=== PATIENT | male | born 1985 | race Caucasian/White ===

== ENCOUNTER 2019-10-03 15:08 | Outpatient (CLI) | payer OTHER ==
[2019-10-03 17:57] VITALS: BP 145/86
--- NOTE | 2019-10-03 17:57 | SLEEP CARE CONSULTATION ---
Information from patient questionnaire entered by Tg Hoang. I have reviewed and concur with the information entered by Tg Hoang. This document represents the service I personally performed and the decisions made by me, Shreya Bowens MD, [facility]. History of Present Illness Reason for Visit: New patient Chief Complaint: reports: Unrefreshed sleep, Snoring, Excessive daytime sleepiness, Observed pauses in breathing, Fatigue, Frequent awakenings at night Usual bedtime: 0900 Time it takes to fall asleep: 20-30 MINUTES Snores at night: Yes Observed to quit breathing while asleep: Yes Sleeps alone due to snoring: No Number of times waking at night: 3-4 Toss, Turn, or Twitch while sleeping: Yes Recalls having dreams: No Usually gets out of bed at: 1700 Feels refreshed in the morning: No Morning headache: Yes Sleepy or fatigued during the day: Yes Ever fallen asleep while driving: Yes Takes day naps: No Dreams during day naps: No Prior sleep studies: No Additional HPI information: I had the pleasure of seeing Mr. Peterson today regarding the possibility of him having a sleep disorder. As you know, he is a 34-year-old gentleman who complains of loud snore, observed apneas, frequent awakenings, unrefreshed sleep, persistent fatigue, and excessive daytime sleepiness for the past several years. The patient tells me that he normally goes to bed around 9 am, and it takes him approximately 20 - 30 minutes to fall asleep. He has been told that he snores loudly and irregularly at night. He has also been observed to stop breathing in his sleep. His can still sleep in the same bed. He can recall waking up on the average of 3 - 4 times during the night. Most of the time he wakes up because of no apparent reason. He has awakened occasionally because of his own snoring, but not choking, or having to gasp for air. There is a lot of tossing and turning in his sleep. He has somniloquy (sleep talking) but not somnambulism (sleep walking). Generally, there is no recollection of dreams. In the morning he usually gets up out of the bed around 5 pm not feeling refreshed nor rested. He occasionally has a morning headache that goes away within an hour. During the day he complains of feeling sleepy and fatigued. His score on [place] Sleepiness Scale is 15 out of 24. He has fallen asleep while driving and has gone out of the augustus. He usually does not take naps during the day. Upon falling asleep during the day he denies having vivid dreams. He has never had sleep paralysis, experienced cataplexy or symptoms of restless leg syndrome. He reports having impaired concentration during the day. Subjective Initial [place] Sleepiness Scale score: 15 Social History The patient's occupation is active . Patient is and lives in [place]. Have you smoked in the past 12 months: Yes Cigarettes per day (20/pack): 2 (1-2 every other week) Years of smokin Smoking Pack Years: 1.4 Alcohol use: Yes Alcohol amount and frequency: 1/month Caffeine use: Yes Caffeine amount and frequency: 1 cup/day Family History Family history of sleep disordered breathing: Yes Family Hx Sleep Apnea: Mother: Snoring, Father: Snoring Allergies and Home Medications Drug allergies reviewed: Yes (NKDA) Home medication list reviewed: Yes (Claritin) Review of Systems Weight gain over past 5 years: 40 Weight loss over past 5 years: 10 Cardiovascular: denies: high blood pressure, palpitations, chest pain, irregular heart rate or pulse, leg or foot swelling, have to sleep sitting up, other Neurological: reports: headaches Psychiatric: denies: Attention Deficit Hyperactivity, anxiety, depression, mood disorder, claustrophobia, other Ear/Nose/Throat: reports: dry mouth/throat, wisdom teeth removed Endocrine: reports: sluggishness Musculoskeletal: reports: neck pain, back pain Immunologic: denies: sneezing, rash, itching, allergies to food or environment, other Physical Exam Vital signs obtained and entered by: Dr. Bowens Blood Pressure: 145/86 Cuff size: regular Heart Rate: 82 O2 Saturation: 98 Height: 5 ft 10 in Weight: 278 lb Body Mass Index: 39.9 BMI Classification: Obese Neck circumference: 20 Mood/affect: normal HEENT: No craniofacial malformation Nostrils: patent to airflow Turbinates: normal Septum: midline Mouth and throat: narrow oropharynx Soft palate: long Hard palate: normal Uvula: normal Uvula visualization: 50% Mallampati Class II Tongue: normal in size Tonsils: small Chin and jaw: normal size and position Neck: normal w/o lymphadenopathy or thyromegaly Heart: regular rate and rhythm Lungs: clear bilaterally Abdomen: soft, non-tender Extremities: 1+ edema Neurologic: intact, no focal deficits Impression and Plan IMPRESSION: 1. Obstructive Sleep Apnea-Hypopnea Syndrome, as suggested by history of loud and irregular snoring, observed cessation of breath while asleep, frequent awakenings during the night, unrefreshed sleep, morning headache, cognitive impairment, and daytime hypersomnolence. Narrow oropharynx and obesity are common predisposing factors for obstructive sleep apnea-hypopnea syndrome. Pathophysiology of sleep-disordered breathing was discussed. I recommend proceeding to polysomnography to confirm the diagnosis and to assess severity. If he has significant sleep disordered breathing, a manual CPAP titration study will also be performed to find the optimal treatment pressure. I informed the patient of what the sleep studies involve and after some discussion, he agreed to proceed. Plan: 1. Schedule an in-laboratory polysomnography + manual CPAP titration study 2. Avoid long distance driving or when feeling sleepy. 3. Avoid alcohol, sedative and muscle relaxant around bedtime. 4. Attempt to lose weight. 5. Return in 1 to 2 weeks after the study to discuss results and initiate therapy. I spent 100% of this visit face to face with the patient with greater than 50% of this was spent time counseling the patient and coordination of care.
== END 2019-10-03 15:09 | disposition home or self-care (01) ==
LOC: SC 15:08
PROVIDERS: ATTEND Internal Medicine Pulmonary Disease
DX: R06.83 Snoring (principal); R06.81 Apnea, not elsewhere classified; G47.8 Other sleep disorders; R51 Headache; R41.89 Other symptoms and signs involving cognitive functions and awareness; G47.10 Hypersomnia, unspecified; E66.9 Obesity, unspecified; Z68.39 Body mass index [BMI] 39.0-39.9, adult
CPT/HCPCS: 99203; 99212

== ENCOUNTER 2019-10-28 19:39 | Outpatient (CLI) | payer OTHER | END 2019-10-28 19:40 | disposition home or self-care (01) | LOC: SC 19:39 | PROVIDERS: ATTEND Internal Medicine Pulmonary Disease | DX: G47.33 Obstructive sleep apnea (adult) (pediatric) (principal); E66.9 Obesity, unspecified; Z68.39 Body mass index [BMI] 39.0-39.9, adult | CPT/HCPCS: 95810 ==

== ENCOUNTER 2019-11-23 17:01 | Outpatient (CLI) | payer OTHER ==
--- NOTE | 2019-11-23 16:30 | SLEEP CARE CONSULTATION ---
Information from patient questionnaire entered by Tg Hoang. I have reviewed and concur with the information entered by Tg Hoang. This document represents the service I personally performed and the decisions made by me, Ashley Smalls, RN, MSN, [employer]. History of Present Illness Service Date and Time: 11/23/2019 1600 Initial [place] Sleepiness Scale score: 15 Current [place] Sleepiness Scale score: 12 Additional HPI information: REAL KHAN returns for televideo follow up to discuss results of the recently performed polysomnography. I explained the pathophysiology behind obstructive sleep apnea. We then spent quite a bit of time discussing different treatment options. For mild obstructive sleep apnea, surgery and oral appliance are alternatives to nasal CPAP therapy but in moderate or severe cases, nasal CPAP is the most effective and reliable treatment. I reviewed the impact of weight changes on sleep apnea and strongly recommended losing weight. After some discussion, the patient opted to go with the nasal CPAP therapy. Nasal autoCPAP set at [id number] will be ordered with rationale explained. A manual titration study will be ordered if unable to find optimal pressure with office adjustments. I explained how CPAP machine works and what to expect when using the machine. Using CPAP every night in order to get used to it was emphasized. Patient advised to put CPAP mask on before getting into bed so as not to fall asleep without CPAP. To assist acclimation to CPAP use, it could also be used for a short time during day while reading or watching TV. The patient was instructed to call the CPAP supplier to discuss any mechanical problem that may occur. If the mask given is uncomfortable or is difficult to keep on through the night even with adjustment, contact the CPAP supplier as many will replace with another mask style if notified before 30 days. If snoring or perceives is not getting enough air or too much air from the machine, notify this office. AAS patient education PAP tips reviewed and will be sent to patient. Patient counseled not drink alcohol less than 4 hours before bedtime as it can increase snoring and apnea. Patient was cautioned about risks of drowsy driving until sleepiness symptoms resolve. 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 Sleep Study - Results Polysomnography/Home Sleep Study results: The quality of the study is good. The patient had normal sleep efficiency. The sleep architecture was abnormal for sleep fragmentation and reduced amount of time spent in slow wave sleep (N3). Respiratory monitoring showed mild obstructive sleep apnea-hypopnea (AHI = 13.3) associated with frequent arousals, oxyhemoglobin desaturation and mild hypoxia (cj oxygen saturation of 80%). The respiratory events occurred mainly during REM and supine sleep (supine AHI = 17.5; non-supine = 7.98). Snore was light to loud in intensity. There was no significant periodic leg movement of sleep. Cardiac rhythm was normal sinus rhythm without significant arrhythmia. No abnormal behavior (parasomnia) observed during the night. Allergies and Home Medications Home medication list reviewed: No (no changes) Review of Systems Review of systems same as previous: Yes Physical Exam Height: 5 ft 10 in Weight: 275 lb Body Mass Index: 39.4 BMI Classification: Obese Impression and Plan 1. Obstructive Sleep Apnea-Hypopnea Syndrome, mild , with lowest oxygen saturation of 80%. Obviously this is the cause of the patients symptoms of unrefreshed sleep, and excessive daytime sleepiness. As mentioned above, the patient will be started on nasal autoCPAP therapy with pressure set at 4-15 cmH2 O. A manual titration study will be completed if unable to find optimal treatment pressure with office adjustments. Compliance guidelines also reviewed. A copy of compliance guidelines will be given for reference at check out. Because the apnea is more severe supine, I instructed to avoid sleeping supine using pillow positioning until able to start CPAP use. * Nasal auto CPAP therapy, pressure at 4-15 cm H2O. * Attempt to lose weight. * Avoid alcohol consumption near bedtime. * Avoid supine sleep until using CPAP. * The patient is again cautioned about driving until sleepiness completely resolves. * Return one month after CPAP obtained. I will assess response to therapy and compliance at that time. Visit Type: Telehealth Video (to minimize the risk of COVID -19 exposure, the patient agrees to this visit and to have insurance billed.) Video Type: [employer] Patient Location: Home Location of Provider: Home Patient agrees and consents to this telehealth visit type: Yes Time Spent with Patient (minutes): 21 Provider Statement: I spent 100% of the Telehealth Video Call with the patient with greater than 50% spent counseling the patient and coordination of care.
== END 2019-11-23 17:02 | disposition home or self-care (01) ==
LOC: SC 17:01
PROVIDERS: ATTEND Nurse Practitioner Family
DX: G47.33 Obstructive sleep apnea (adult) (pediatric) (principal); E66.9 Obesity, unspecified; Z68.39 Body mass index [BMI] 39.0-39.9, adult

== ENCOUNTER 2020-03-06 09:17 | Outpatient (CLI) | payer OTHER ==
[2020-03-06 10:06] VITALS: BP 120/76
--- NOTE | 2020-03-06 10:06 | SLEEP CARE CONSULTATION ---
Information from patient questionnaire entered by Tg Hoang. I have reviewed and concur with the information entered by Tg Hoang. This document represents the service I personally performed and the decisions made by me, Ashley Smalls, RN, MSN, [employer]. History of Present Illness Service Date and Time: 03/06/2020916 Previous diagnosis: Mild, Obstructive Sleep Apnea-Hypopnea Syndrome AHI: 13.3 Reason for follow up: first compliance Equipment type: CPAP Equipment obtained from: Other (CPAP Medical Supplies) Mask style: Nasal pillows Backup mask available: Yes (FFM) Last cushion change: none since start of therapy Prior sleep studies: Yes Year and Where: 2019 [facility] Type of Sleep Study: Polysomnography CPAP Compliance Data - Data Reviewed with Patient Average duration of nightly device use: 5h 2m Compliance rate %: 76.7 Current pressure setting (cmH2O): 4-15 Humidity settin Heated hose settin Average residual AHI: 0.9 (90% 8.7cmH20/ average 6.6cmH20) Average large leak: 28s Subjective Patient concerns: reports: mask discomfort (nasal tenderness below nose for 1-2 hours after removes mask / less with loosening), air blowing in eyes (occasional but resolved with mask adjustment. ), mask leak noise (recently ), nasal congestion (seasonal allergies now present / affecting his CPAP use / tried claritin and helps. ), other (skin irritation from Dreamwear full face mask despite daily cleaning, resolved with use of nasal pillows/ also has been waking to mask off face for unknown. ). denies: condensation in mask/hose, dry mouth, nose, throat, epistaxis Observed to snore while using device: No Current pressure setting perceived as: comfortable On therapy, patient: reports: sleeping better, awakening more refreshed, being more awake and alert during the day, more rested overall. denies: drowsiness while driving Initial [place] Sleepiness Scale score: 15 Current [place] Sleepiness Scale score: 7 Allergies and Home Medications Known drug allergies: No Home medication list reviewed: No (no changes ) Physical Exam Blood Pressure: 120/76 Cuff size: long Heart Rate: 57 O2 Saturation: 98 Height: 5 ft 10 in Weight: 288 lb Body Mass Index: 41.3 BMI Classification: Morbidly Obese Impression and Plan 1. Obstructive Sleep Apnea-Hypopnea Syndrome, mild , with good treatment compliance and good apnea control. On CPAP therapy, the patient has better sleep quality and is more rested overall. Review of usual supply replacements with rationale. To reduce mask discomfort and hopefully reduce mask being removed in sleep, I advised him to change his mask cushions every 2 weeks as allowed on insurance for comfort and fit of mask. It has also started to leak and this could be a reason for him pulling off mask in his sleep. Until then, he is to adjust the mask slightly looser for comfort to see if nasal tenderness less. Further discussion reflected patient would like to try new style like his spouses if current mask remains uncomfortable after updating the nasal pillows. A mask refitting order written. Nasal congestion can be reduced by restarting the humidity. The heated hose can be adjusted higher if condensation with higher humidity setting. Saline nasal spray sample was also given to use prior to CPAP to clear nasal secretions and wash off any nasal allergens to facilitate nasal breathing. In addition, a steamy shower before bed instead of morning will often assist nasal drainage. Verbal instructions given on how to change humidity and heated hose settings with rationale explaining why to change. 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 If he needs a battery, he is to request from his PCM in addition to 6 months of CPAP supplies. When using the CPAP battery, the humdifier is not used due to extra power required. Patient weight briefly discussed and how it affects his apnea severity, CPAP pressure and can increase health risks. He g enerally loses weight on Adet and thus will keeps at current pressure. He was advised of symptoms to report for pressure change. Patient's apnea severity and rationale for treatment to reduce apnea, improve sleep quality and reduce cardiovascular and cerebrovascular events was reviewed. Hopefully the above measures will allow patient to use CPAP with all sleep for maximum benefit of treatment. * Continue auto CPAP pressure at 4-15 cmH2O * Update mask cushions. * Implement methods to reduce nasal congestion * mask refitting * Notify me if snoring with mask or feeling that the pressure is too much or too little * Attempt to lose weight * Call this office if any problems using CPAP * Return for follow up in 3 months , or sooner if concerns arise Visit Type: In Office Time Spent with Patient (minutes): 30 Provider Statement: I spent 100% of the Face to Face Visit with the patient with greater than 50% spent counseling the patient and coordination of care.
== END 2020-03-06 09:18 | disposition home or self-care (01) ==
LOC: SC 09:17
PROVIDERS: ATTEND Nurse Practitioner Family
DX: G47.33 Obstructive sleep apnea (adult) (pediatric) (principal); E66.01 Morbid (severe) obesity due to excess calories; Z68.41 Body mass index [BMI] 40.0-44.9, adult
CPT/HCPCS: 99212; 99214

== ENCOUNTER 2020-06-03 08:58 | Outpatient (CLI) | payer OTHER ==
--- NOTE | 2020-06-03 09:45 | SLEEP CARE CONSULTATION ---
Information from patient questionnaire entered by Natty Zavaleta. I have reviewed and concur with the information entered by Natty Zavaleta. This document represents the service I personally performed and the decisions made by , Denise Lowery ARNP. History of Present Illness Service Date and Time: 06/03/2020 0858 Previous diagnosis: Mild, Obstructive Sleep Apnea-Hypopnea Syndrome AHI: 13.3 (in 2019) Reason for follow up: three month Equipment type: CPAP Equipment obtained from: Other (CPAP Medical Supplies ; getting supplies as needed) Mask style: Nasal (prefers the full face and snores more with the nasal mask) Mask brand: Respironics Backup mask available: No Last cushion change: 1 week Prior sleep studies: Yes Year and Where: 2019 - [facility] Type of Sleep Study: Polysomnography HPI additional information: REAL KHAN was diagnosed to have mild, AHI 13.3, obstructive sleep apnea- hypopnea syndrome and returned today for CPAP therapy three month follow-up. CPAP Compliance Data - Data Reviewed with Patient Average duration of nightly device use: 6.05 Compliance rate %: 88.9 (90 days) Current pressure setting (cmH2O): 4-15 Humidity settin Heated hose settin Average residual AHI: 1.2 Average large leak: 46 sec Subjective Patient concerns: reports: air blowing in eyes (occasionally when it has moved on face during the night), mask leak noise (occasional, adjusting helps), dry mouth, nose, throat (dry mouth, not using full mask), other (snoring when using the nasal mask). denies: aerophagia, mask discomfort (full face works better to reduce snoring), condensation in mask/hose, nasal congestion, epistaxis Observed to snore while using device: Yes (when using nasal mask, not on full face) Current pressure setting perceived as: comfortable On therapy, patient: reports: sleeping better, awakening more refreshed, being more awake and alert during the day, more rested overall. denies: drowsiness while driving Initial [place] Sleepiness Scale score: 15 (in 2019) Current [place] Sleepiness Scale score: 1 Allergies and Home Medications Drug allergies reviewed: Yes (NKDA) Home medication list reviewed: Yes (no changes) Review of Systems Review of systems same as previous: Yes (no changes) Physical Exam Heart Rate: 70 O2 Saturation: 97 Height: 5 ft 10 in Weight: 296 lb Body Mass Index: 42.5 BMI Classification: Morbidly Obese Impression and Plan 1. Obstructive Sleep Apnea-Hypopnea Syndrome, mild, with good treatment compliance and good apnea control. On CPAP therapy, the patient has better sleep quality and is more rested overall. He would like to go back to using the full face Dreamwear mask since he is snoring using the nasal mask. He had some issues with skin redness building up with its use under the nose and around the mouth. He was advised to get mask liners to go between mask and skin to reduce this skin reaction. He voiced understanding and agreement. He has had more mouth dryness since not using the full face because he is a mouth breather and cannot stand using the chin strap. Oral dryness can be reduced by adjusting humidity s etting higher or heated hose lower or by adjusting both settings. I will write for a full face mask for him to fill when due for supplies. I will adjust pressure to 6-10 cm H2O, reflecting the median pressure of 6.1 cm H2O, 90% pressure of 8.2 cm H2O and maximum 9.7 cm H2O. Patient's apnea severity and rationale for treatment to reduce apnea, improve sleep quality and reduce cardiovascular and cerebrovascular events was reviewed. * Full face mask * Change autoCPAP pressure to 6-10 cmH2O * Notify me if snoring with mask or feeling that the pressure is too much or too little * Attempt to lose weight * Call this office if any problems using CPAP * Return for follow up in 1-2 months, or sooner if concerns arise Counseling Topics: Spare mask, Weight loss health impact Visit Type: In Office Time Spent with Patient (minutes): 23 Provider Statement: I spent 100% of the Face to Face Visit with the patient with greater than 50% spent counseling the patient and coordination of care.
== END 2020-06-03 08:59 | disposition home or self-care (01) ==
LOC: SC 08:58
PROVIDERS: ATTEND Nurse Practitioner Family
DX: G47.33 Obstructive sleep apnea (adult) (pediatric) (principal); E66.01 Morbid (severe) obesity due to excess calories; Z68.41 Body mass index [BMI] 40.0-44.9, adult
CPT/HCPCS: 99212

== ENCOUNTER 2021-02-14 17:53 | Emergency (ER) | payer OTHER ==
[2021-02-14 18:00] VITALS: BP 150/67
[2021-02-14] MEDS ORDERED: PSEUDOEPHEDRINE 30 MG TABLET PO STA (18:35)
--- NOTE | 2021-02-14 18:39 | ED Physician Documentation ---
History of Present Illness - Stated complaint Stated Complaint: COUGH,RUNNY NOSE,CONGESTION - Chief complaint Chief Complaint: Resp - History obtained from History obtained from: Patient - History of Present Illness Timing: How many days ago (2) Pain level max: 0 Pain level now: 0 - Additonal information Additional information: 35-year-old male presents to the emergency department with cough, nasal congestion and mild sore throat over the past 2 days. Increased coughing today. Concerned about possible bronchitis. He does smoke 1 to 2 cigarettes daily. He states he is trying to quit. Nothing makes this better or worse. No fevers. No chills. Has had his Covid vaccinations. Review of Systems Ten Systems: 10 systems reviewed and negative Constitutional: denies: Fever, Chills Nose: reports: Rhinorrhea / runny nose, Congestion Respiratory: reports: Cough (productive) GI: denies: Nausea, Vomiting, Diarrhea Skin: denies: Rash Musculoskeletal: denies: Neck pain, Back pain Neurologic: denies: Headache PD PAST MEDICAL HISTORY - Past Medical History Past Medical History: No - Past Surgical History Past Surgical History: Yes Ortho: Shoulder arthroplasty, Arthroscopic surgery - Present Medications Home Medications: Ambulatory Orders Medication Instructions Recorded Confirmed Albuterol Sulf [Ventolin Hfa 1 - 2 puffs INH Q4HR PRN #1 inhaler 02/14/21 Inhaler] Benzonatate [Tessalon] 200 mg PO TID PRN #30 cap 02/14/21 Cetirizine HCl/Pseudoephedrine 1 each PO BID PRN #30 ea 02/14/21 [Zyrtec-D Tablet] - Allergies Allergies/Adverse Reactions: Allergies Allergy/AdvReac Type Severity Reaction Status Date / Time No Known Drug Allergies Allergy Verified 02/14/21 18:00 - Living Situation Living Situation: reports: With family Living Arrangement: reports: At home - Social History Does the pt smoke?: Yes Smoking Status: Current every day smoker Does the pt drink ETOH?: Yes ETOH Use: Wine, Beer Does the pt have substance abuse?: No PD ED PE NORMAL - Vitals Vital signs reviewed: Yes - General General: Alert and oriented X 3, No acute distress - HEENT HEENT: PERRL, Ears normal, Moist mucous membranes, Pharynx benign - Neck Neck: Supple, no meningeal sign - Cardiac Cardiac: RRR, Strong equal pulses - Respiratory Respiratory: No respiratory distress, Clear bilaterally - Abdomen Abdomen: Soft, Non tender, Non distended - Derm Derm: Warm and dry, No rash - Neuro Neuro: Alert and oriented X 3 - Psych Psych: Normal mood, Normal affect Results - Vitals Vitals: Vital Signs - 24 hr 02/14/21 17:56 Temperature 36.4 C L Heart Rate 69 Respiratory 18 Rate Blood Pressure 150/67 H O2 Saturation 97 PD MEDICAL DECISION MAKING - ED course Complexity details: considered differential, d/w patient ED course: Patient with what appears to be a viral upper respiratory infection. Likely rhinovirus. This is very prevalent in the community at this time. No evidence of pneumonia clinically. Will hold chest x-ray at this time. Will treat symptomatically. We will have him follow-up with his doctor for further care. Patient counseled regarding signs and symptoms for which I believe and urgent re-evaluation would be necessary. Patient with good understanding of and agreement to plan and is comfortable going home at this time This document was made in part using voice recognition software. While efforts are made to proofread this document, sound alike and grammatical errors may occur. Covid test was sent Departure - Departure Disposition: Home, Self Care Clinical Impression: Upper respiratory tract infection Qualifiers: URI type: unspecified viral URI Qualified Code(s): J06.9 - Acute upper respiratory infection, unspecified Condition: Good Instructions: ED URI Viral Follow-Up: MAXI PRESLEY DO [Primary Care Provider] - Within 1 week Prescriptions: Albuterol Sulf [Ventolin Hfa Inhaler] 1 - 2 puffs INH Q4HR PRN #1 inhaler PRN Reason: Shortness Of Air/Wheezing Benzonatate [Tessalon] 200 mg PO TID PRN #30 cap PRN Reason: Cough Cetirizine HCl/Pseudoephedrine [Zyrtec-D Tablet] 1 each PO BID PRN #30 ea PRN Reason: nasal congestion Comments: Follow-up with your doctor for further care. Drink plenty of fluids and rest. You do have a Covid test pending, but you have been vaccinated. This is likely a case of rhinovirus as this is heavily in the community at this time. Discharge Date/Time: 02/14/21 18:47
== END 2021-02-14 18:47 | disposition home or self-care (01) ==
LOC: ED 17:53
DX: J06.9 Acute upper respiratory infection, unspecified (principal); B97.89 Other viral agents as the cause of diseases classified elsewhere; Z20.822 Contact with and (suspected) exposure to COVID-19; F17.210 Nicotine dependence, cigarettes, uncomplicated
CPT/HCPCS: 87635; 99283; 99284; A9270

== ENCOUNTER 2021-03-20 19:19 | Emergency (ER) | payer OTHER ==
[2021-03-20 19:29] VITALS: BP 150/90
[2021-03-20] MEDS ORDERED: BUFFERED LIDOCAINE 10 ML SYRINGE SUBQ STA (19:37)
--- NOTE | 2021-03-20 19:40 | ED Physician Documentation ---
History of Present Illness - Stated complaint Stated Complaint: RT THUMB INJURY - Chief complaint Chief Complaint: Laceration - Additonal information Additional information: 35-year-old male presents emergency department for evaluation of a right thumb laceration sustained this evening when using a box shook patcher to open a box. His tetanus is up-to-date. He is left-hand dominant. Review of Systems Constitutional: reports: Reviewed and negative Nose: reports: Reviewed and negative Throat: reports: Reviewed and negative Cardiac: reports: Reviewed and negative Respiratory: reports: Reviewed and negative Skin: reports: Laceration (s) PD PAST MEDICAL HISTORY - Past Surgical History Past Surgical History: Yes Ortho: Shoulder arthroplasty, Arthroscopic surgery - Present Medications Home Medications: Ambulatory Orders Medication Instructions Recorded Confirmed Albuterol Sulf [Ventolin Hfa 1 - 2 puffs INH Q4HR PRN #1 inhaler 02/14/21 Inhaler] Benzonatate [Tessalon] 200 mg PO TID PRN #30 cap 02/14/21 Cetirizine HCl/Pseudoephedrine 1 each PO BID PRN #30 ea 02/14/21 [Zyrtec-D Tablet] - Allergies Allergies/Adverse Reactions: Allergies Allergy/AdvReac Type Severity Reaction Status Date / Time No Known Drug Allergies Allergy Verified 03/20/21 19:26 - Social History Does the pt smoke?: Yes Smoking Status: Current every day smoker Does the pt drink ETOH?: Yes Does the pt have substance abuse?: No PD ED PE EXPANDED - General General: Alert, No acute distress - Extremities Extremities: Right finger(s) (2 cm laceration on the palmar side of the right thumb at the IP joint. Normal flexion extension is preserved against resistance. He does express some subtle numbness and tingling distal radial side.) Results - Vitals Vitals: Vital Signs - 24 hr 03/20/21 19:26 Temperature 36.5 C Heart Rate 69 Respiratory 16 Rate Blood Pressure 150/90 H O2 Saturation 98 Oxygen O2 Source Room air Procedures - Laceration (location) right thumb Length in cm: 2.5 Wound type: Linear, Into subcut fat, Clean Neurovascular status: Motor intact Tendon involvement: Tendon intact Anesthesia: Lidocaine 1% Wound preparation: Chlorhexadine, Irrigated copiously NS Skin layer closure: Interrupted, Size #-0 - enter number (4), Sutures - enter # (3) Other: Patient tolerated well, No complications, Tetanus UTD PD MEDICAL DECISION MAKING - ED course Complexity details: d/w patient ED course: Right thumb simple laceration at DIP joint on palmar side. There are some distal numbness likely related to nerve injury. However he has no evidence of a tendon injury. Wound easily closed with 3 sutures. Routine wound care emergent return precautions discussed for infection. Tetanus is up-to-date. Departure - Departure Disposition: Home, Self Care Clinical Impression: Laceration of right thumb Qualifiers: Encounter type: initial encounter Damage to nail status: without damage Foreign body presence: without foreign body Qualified Code(s): S61.011A - Laceration without foreign body of right thumb without damage to nail, initial encounter Condition: Stable Record reviewed to determine appropriate education?: Yes Instructions: ED Laceration All Comments: Your suture should be removed in 7 to 10 days. In 24 hours you may remove the dressing wash gently with warm soap and water, apply any antibiotic ointment and a simple bandage. Your tetanus is up-to-date. Please attempt to keep your wound clean and dry. Do not submerge it in dirty dishwater or bath water. Return to the emergency department if you have any concerns of infection such as redness, fevers milky drainage increased pain.
[2021-03-20] MEDS ORDERED: BACITRACIN ZINC OINT 1 PACKET TOP STA (19:48)
== END 2021-03-20 20:09 | disposition home or self-care (01) ==
LOC: ED 19:19
DX: S61.011A Laceration without foreign body of right thumb without damage to nail, initial encounter (principal); W26.0XXA Contact with knife, initial encounter; F17.200 Nicotine dependence, unspecified, uncomplicated
CPT/HCPCS: 12001; 99282; 99283; A9270

== ENCOUNTER 2021-04-16 11:43 | Outpatient (CLI) | payer OTHER ==
--- NOTE | 2021-04-16 12:15 | SLEEP CARE CONSULTATION ---
Information from patient questionnaire entered by Natty Zavaleta. I have reviewed and concur with the information entered by Natty Zavaleta. This document represents the service I personally performed and the decisions made by , Denise Lowery ARNP. History of Present Illness Service Date and Time: 04/16/2021 1143 Previous diagnosis: Mild, Obstructive Sleep Apnea-Hypopnea Syndrome AHI: 13.3 (in 2019) Reason for follow up: other (9 month) Equipment type: CPAP Equipment obtained from: Other (CPAP Medical Supplies ; getting supplies as needed) Mask style: Full face Mask brand: Respironics (Dreamwear) Backup mask available: Yes (other mask) Last cushion change: 2 weeks Prior sleep studies: Yes Year and Where: 2019 - [facility] Type of Sleep Study: Polysomnography HPI additional information: REAL KHAN was diagnosed to have mild, AHI 13.3, obstructive sleep apnea- hypopnea syndrome and returned today for CPAP therapy 9 month follow-up. CPAP Compliance Data - Data Reviewed with Patient Average duration of nightly device use: 6 hr 14 min Compliance rate %: 73.3 (180 days) Current pressure setting (cmH2O): 6-10 Humidity settin Heated hose settin Average residual AHI: 1.3 Average large leak: 5 min 34 sec Subjective Missed days of use due to: reports: mask issues Patient concerns: reports: mask discomfort, other (Rash). denies: aerophagia, air blowing in eyes, mask leak noise, condensation in mask/hose, nasal congestion, dry mouth, nose, throat, epistaxis Observed to snore while using device: No Current pressure setting perceived as: comfortable On therapy, patient: reports: sleeping better, awakening more refreshed, being more awake and alert during the day, more rested overall. denies: drowsiness while driving Initial [place] Sleepiness Scale score: 15 (in 2020) Current [place] Sleepiness Scale score: 2 Allergies and Home Medications Home medication list reviewed: Yes (no changes) Review of Systems Review of systems same as previous: Yes (no changes) Physical Exam Heart Rate: 71 O2 Saturation: 98 Height: 5 ft 10 in Weight: 281 lb Weight change since last visit: 9 lb loss Body Mass Index: 40.3 BMI Classification: Morbidly Obese Impression and Plan 1. Obstructive Sleep Apnea-Hypopnea Syndrome, mild, with good treatment compl iance and good apnea control. On CPAP therapy, the patient has better sleep quality and is more rested overall. Patient is satisfied with his current CPAP treatment. He thought the pressure might be going to high in keeping him from falling asleep but he has since discovered the ramp feature to bring down to 4 cmH2O which he thinks will help reduce this feeling of excessive pressure. I will not make any adjustments today for his pressure. Patient developed a rash on his face where his full face DreamWear mask touched his skin. He has been using a nasal cushion for a while and the rash is going away. He would like to try a different style of full facemask. I will write for mask refitting for him to try other styles that might work better for him. He was given a brochure for mask barriers, Pad A Cheek, that may also help with reducing chance of rash on his skin. Patient also comes in with questions about the recall. Patient was encouraged to register their device online with [employer] for the recall to see if their device is affected. If their device is affected they should start a claim. Patient denies any black particles seen in machine or hoses, any unusual odors coming from device. Patient has not experienced any physical symptoms such as upper airway irritation, headache, skin or eye irritation, asthma, nausea/vomiting, difficulty breathing or chest pain. Patient informed that they may use an inline CPAP filter that they can obtain online to reduce chance of any particles being inhaled or ingested. We discussed thoroughly the health risks of not using the CPAP versus continuing use with the filter in place. If patient is not able to sleep due to waking up choking, gasping for air or other respiratory distress that they may decide to continue using it until it is either replaced or repaired. Patient voiced understanding and agreement with plan. Patient has lost about 9 pounds since his last visit. He is taking a break at trying to lose weight but then will get back on it. Patient was encouraged to lose weight for their overall health and to reduce apneas. Patient's apnea severity and rationale for treatment to reduce apnea, improve sleep quality and reduce cardiovascular and cerebrovascular events was reviewed. * Continue auto CPAP pressure at 6-10 cmH2O * Mask refitting * Notify me if snoring with mask or feeling that the pressure is too much or too little * Attempt to lose weight * Call this office if any problems using CPAP * Return for follow up in 1 year, or sooner if concerns arise Counseling Topics: Spare mask, Weight loss health impact Visit Type: In Office Time Spent with Patient (minutes): 24 Provider Statement: I spent 100% of the Face to Face Visit with the patient with greater than 50% spent counseling the patient and coordination of care.
== END 2021-04-16 11:44 | disposition home or self-care (01) ==
LOC: SC 11:43
PROVIDERS: ATTEND Nurse Practitioner Family
DX: G47.33 Obstructive sleep apnea (adult) (pediatric) (principal); E66.01 Morbid (severe) obesity due to excess calories; Z68.41 Body mass index [BMI] 40.0-44.9, adult
CPT/HCPCS: 99212; 99213

== ENCOUNTER 2022-06-09 09:59 | Emergency (ER) | payer OTHER ==
[2022-06-09] MEDS ORDERED: ALBUTEROL 1 PUFF INH STA (11:40)
--- NOTE | 2022-06-09 11:42 | ED Physician Documentation ---
History of Present Illness - Stated complaint Stated Complaint: SOA/COUGH - Chief complaint Chief Complaint: Resp - Additonal information Additional information: 36-year-old male presents emergency department for evaluation of 4 days cough c old congestion and fevers. He reports he has difficulty taking a deep breath. Vaccinated and boosted for COVID. He is a daily tobacco/vape user. He reports that when he gets head cold he gets bronchitis sometimes also has associated wheeze. No nausea or vomiting. No chest pain. Mostly concerned with his cough when he takes deep breaths. Cough is productive. No nausea or vomiting. Review of Systems Constitutional: reports: Fever, Myalgias Eyes: reports: Reviewed and negative Ears: reports: Reviewed and negative Nose: reports: Congestion Throat: reports: Reviewed and negative Cardiac: denies: Chest pain / pressure, Palpitations Respiratory: reports: Dyspnea, Cough GI: reports: Reviewed and negative : reports: Reviewed and negative Skin: reports: Reviewed and negative Musculoskeletal: reports: Reviewed and negative PD PAST MEDICAL HISTORY - Past Surgical History Past Surgical History: Yes Ortho: Shoulder arthroplasty, Arthroscopic surgery - Present Medications Home Medications: Ambulatory Orders Medication Instructions Recorded Confirmed Albuterol Sulf [Ventolin Hfa 1 - 2 puffs INH Q4HR PRN #1 each 06/09/22 Inhaler] - Allergies Allergies/Adverse Reactions: Allergies Allergy/AdvReac Type Severity Reaction Status Date / Time No Known Drug Allergies Allergy Verified 06/09/22 10:06 - Social History Does the pt smoke?: Yes Smoking Status: Current every day smoker Does the pt drink ETOH?: Yes Does the pt have substance abuse?: No - Immunizations Immunizations are current?: Yes PD ED PE NORMAL - General General: Alert and oriented X 3, No acute distress, Well developed/nourished (Obese) - HEENT HEENT: Moist mucous membranes, Pharynx benign - Neck Neck: Supple, no meningeal sign - Cardiac Cardiac: RRR, No murmur - Respiratory Respiratory: No respiratory distress. 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 Eye Opening: Spontaneous Motor: Obeys Commands Verbal: Oriented GCS Score: 15 Results - Vitals Vitals: Vital Signs - 24 hr 06/09/22 06/09/22 06/09/22 10:03 10:39 12:00 Temperature 38.1 C H 36.6 C Heart Rate 96 89 94 Respiratory 18 17 18 Rate Blood Pressure 144/71 H 139/63 H O2 Saturation 94 96 06/09/22 06/09/22 12:06 12:07 Temperature 38.1 C H Heart Rate 100 93 Respiratory 19 20 Rate Blood Pressure 140/68 H 155/75 H O2 Saturation 99 94 Oxygen O2 Source Room air - Rads (name of study) cxr Radiology: Final report received (No acute cardiopulmonary process) PD MEDICAL DECISION MAKING - ED course Complexity details: reviewed results, re-evaluated patient, considered differential, d/w patient ED course: 36-year-old male presents emergency department for evaluation of 4 days cough cold congestion. He does have a history of active tobaccoism as well as vaping. He is not hypoxic. Fully vaccinated for COVID. I suspect he likely has a viral upper respiratory infection. He does have some low-grade temperature elevations. A chest x-ray here does not show any acute findings to suggest heart failure, pneumonia or pleural effusion. On exam despite hypoxia he did have some expiratory wheezes. Respiratory therapy was able to give him albuterol treatment with a spacer which markedly improved the symptoms and patient is feeling better. He will be discharged home with prescription for albuterol. We discussed the routine conservative management of viral URIs with reactive airway disease. Emergent return precautions were discussed for failure symptoms to resolve as expected. Departure - Departure Disposition: 01 Home, Self Care Clinical Impression: Viral URI with cough Condition: Stable Record reviewed to determine appropriate education?: Yes Instructions: ED Bronchitis Asthmatic Prescriptions: Albuterol Sulf [Ventolin Hfa Inhaler] 1 - 2 puffs INH Q4HR PRN #1 each PRN Reason: Shortness Of Air/Wheezing Comments: Narayan the x-ray today in the emergency department does not show any findings of heart failure, pneumonia or pleural effusion. You have had 4 days of cough cold congestion and low-grade temperature elevations. I suspect you have a virus causing the cough as well as the mild wheeze. Your symptoms got better by taking albuterol here in the emergency department. I have sent a prescription for albuterol to the [facility] in [place]. I encourage you to take 2 to 4 puffs 4-6 times a day over the next week or so. I would expect your cough and congestion to be getting better. If you find that you are having worsening cough despite 10 to 14 days of treatment, develop new fevers or severe respiratory distress then you should return immediately to the ER for a second evaluation
--- NOTE | 2022-06-09 11:51 | XRAY Report ---
PROCEDURE: Chest 1 View X-Ray INDICATIONS: chest pain TECHNIQUE: One view of the chest was acquired. COMPARISON: None. FINDINGS: Surgical changes and devices: None. Lungs and pleura: No pleural effusions or pneumothorax. Lungs are clear. Mediastinum: Mediastinal contours appear normal. Heart size is normal. Bones and chest wall: No suspicious bony lesions. Overlying soft tissues appear unremarkable. IMPRESSION: No acute cardiopulmonary process demonstrated radiographically. Reviewed by: Humza Crum MD on 06/09/2022 11:50 AM [facility] Approved by: Humza Crum MD on 06/09/2022 11:50 AM [facility] Station ID: [id number]
[2022-06-09 12:08] VITALS: BP 155/75
== END 2022-06-09 12:28 | disposition home or self-care (01) ==
LOC: ED 09:59
DX: J06.9 Acute upper respiratory infection, unspecified (principal); R09.02 Hypoxemia; F17.200 Nicotine dependence, unspecified, uncomplicated
CPT/HCPCS: 94640; 99282; 99283

== ENCOUNTER 2023-03-28 14:35 | Outpatient (CLI) | payer OTHER | END 2023-03-28 14:36 | disposition critical access hospital (66) | LOC: EMS 14:35 | DX: R56.9 Unspecified convulsions (principal) | CPT/HCPCS: A0425; A0427 ==

== ENCOUNTER 2023-03-28 14:50 | Emergency (ER) | payer OTHER ==
--- NOTE | 2023-03-28 14:55 | ED Physician Documentation ---
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 He is otherwise healthy. He states he may have had 1 seizure in the past remotely. He was up all night playing a video game and then around 2:00 today had 30 second seizure per the . There was no injury. He was nauseous afterwards. He denies significant alcohol use. No other substance use issues. Prehospital blood sugar 107 PD PAST MEDICAL HISTORY - Past Surgical History Past Surgical History: Yes Ortho: Shoulder arthroplasty, Arthroscopic surgery - Present Medications Home Medications: Ambulatory Orders Medication Instructions Recorded Confirmed Albuterol Sulf [Ventolin Hfa 1 - 2 puffs INH Q4HR PRN #1 each 06/09/22 Inhaler] - Allergies Allergies/Adverse Reactions: Allergies Allergy/AdvReac Type Severity Reaction Status Date / Time No Known Drug Allergies Allergy Verified 03/28/23 14:53 - Social History Does the pt smoke?: Yes Smoking Status: Current every day smoker Does the pt drink ETOH?: Yes Does the pt have substance abuse?: No - Immunizations Immunizations are current?: Yes PD ED PE NORMAL - Vitals Vital signs reviewed: Yes - General General: Alert and oriented X 3, No acute distress - HEENT HEENT: PERRL, EOMI, Dentition benign - Neck Neck: Supple, no meningeal sign, No bony TTP - Cardiac Cardiac: RRR, No murmur - Respiratory Respiratory: No respiratory distress, Clear bilaterally - Abdomen Abdomen: Non tender - Extremities Extremities: Other (Nontender full range of motion both shoulders) - Neuro Neuro: Alert and oriented X 3, No motor deficit, No sensory deficit, Normal speech Eye Opening: Spontaneous Motor: Obeys Commands Verbal: Oriented GCS Score: 15 Results - Vitals Vitals: Vital Signs - 24 hr 03/28/23 03/28/23 03/28/23 14:53 14:58 15:28 Temperature 36.8 C 36.8 C Heart Rate 94 94 83 Respiratory 18 14 15 Rate Blood Pressure 149/76 H 149/76 H 146/89 H O2 Saturation 96 96 100 03/28/23 03/28/23 15:30 16:00 Temperature Heart Rate 82 89 Respiratory 16 18 Rate Blood Pressure 140/88 H 145/73 H O2 Saturation 100 100 Oxygen O2 Source Room air - EKG (time done) 1455 EKG releavant findings:: EKG personally interpreted by author of this note. Relevant findings are: Rate: Rate (enter#) (91) Rhythm: NSR [place]: Normal Intervals: Normal [place] QRS: Normal Ischemia: Normal ST segments - Labs Labs: Laboratory Tests 03/28/23 03/28/23 15:01 15:01 WBC 10.3 RBC 5.85 Hgb 15.7 Hct 47.6 MCV 81.4 MCH 26.8 L MCHC 33.0 RDW 13.8 Plt Count 258 MPV 11.8 H Neut # (Auto) 4.8 Lymph # (Auto) 4.3 H Will # (Auto) 0.8 Eos # (Auto) 0.3 Baso # (Auto) 0.1 Absolute Nucleated RBC 0.00 Nucleated RBC % 0.0 Sodium 137 Potassium 3.6 Chloride 103 Carbon Dioxide 24 Anion Gap 10.0 BUN 15 Creatinine 1.1 Estimated GFR (MDRD) 76 L Glucose 91 Calcium 9.6 Total Bilirubin 0.3 AST 17 ALT 23 Alkaline Phosphatase 54 Total Protein 7.4 Albumin 4.3 Globulin 3.1 Albumin/Globulin Ratio 1.4 Prolactin 20.16 Ethyl Alcohol < 10.0 - Rads (name of study) CT of the head is unremarkable Relevant Findings:: Final report received, EMP independent interpretation of test PD Medical Decision Making - ED course ED course: 37-year-old gentleman with seizure today. Has a history of seizures, last was 15 years ago, also associated with sleep deprivation and he had an all-night or playing video games. There is no specific injury. Prolactin level was elevated consistent with true seizure. CBC, CMP, alcohol levels negative, CT head negative. Discussed no driving and other restrictions and follow-up. Also sleep hygiene. 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 As discussed, per [place] state law you are not allowed to drive for 6 months until seizure-free, you should also avoid activities that would be dangerous should this happen again, such as swimming alone, going up on ladders. My suspicion, given the circumstances, is that poor sleep hygiene and staying up all night probably predispose you to this, try to get a regular bedtime and plenty of sleep going forward. Forms: Activity restrictions
[2023-03-28 15:05] LABS: BASOPHILS # (AUTO) 0.1 10^3/uL (0.0-0.1); BASOPHILS % (AUTO) 0.8 %; EOSINOPHILS # (AUTO) 0.3 10^3/uL (0.0-0.7); EOSINOPHILS % (AUTO) 2.6 %; HCT - HEMATOCRIT 47.6 % (42.0-52.0); HGB - HEMOGLOBIN 15.7 g/dL (14.0-18.0); LYMPHOCYTES # (AUTO) 4.3 10^3/uL (1.5-3.5); LYMPHOCYTES % (AUTO) 41.2 %; MEAN CORPUSCULAR HEMOGLOBIN 26.8 pg (27.0-31.0); MEAN CORPUSCULAR VOLUME 81.4 fL (80.0-94.0); MEAN PLATELET VOLUME 11.8 fL (7.4-11.4); MONOCYTES # (AUTO) 0.8 10^3/uL (0.0-1.0); MONOCYTES % (AUTO) 7.9 %; NEUTROPHILS # (AUTO) 4.8 10^3/uL (1.5-6.6); NEUTROPHILS % (AUTO) 46.3 %; PLT - PLATELET COUNT 258 10^3/uL (130-450); RED BLOOD COUNT 5.85 10^6/uL (4.70-6.10); RED CELL DISTRIBUTION WIDTH 13.8 % (12.0-15.0); WHITE BLOOD COUNT 10.3 x10^3/uL (4.8-10.8)
[2023-03-28 15:19] LABS: ALBUMIN 4.3 g/dL (3.2-5.5); ALBUMIN/GLOBULIN RATIO 1.4 (1.0-2.2); ALKALINE PHOSPHATASE 54 IU/L (42-121); ALT ALANINE AMINOTRANSFERASE 23 IU/L (10-60); AST ASPARTATE AMINOTRANSFERASE 17 IU/L (10-42); BILIRUBIN,TOTAL 0.3 mg/dL (0.2-1.0); BUN - BLOOD UREA NITROGEN 15 mg/dL (6-20); CALCIUM 9.6 mg/dL (8.5-10.3); CARBON DIOXIDE - CO2 24 mmol/L (21-32); CHLORIDE 103 mmol/L (101-111); CREATININE 1.1 mg/dL (0.6-1.3); ETOH - ETHANOL < 10.0 mg/dL; GFR - MDRD 76 (>89); GLUCOSE 91 mg/dL (74-104); POTASSIUM 3.6 mmol/L (3.5-4.5); SODIUM 137 mmol/L (135-145); TOTAL PROTEIN 7.4 g/dL (6.4-8.9)
[2023-03-28 15:36] VITALS: O2SAT 100
--- NOTE | 2023-03-28 15:49 | CT Report ---
PROCEDURE: HEAD WO INDICATIONS: seizure TECHNIQUE: Noncontrast 4.5 mm thick angled axial sections acquired from the foramen magnum to the vertex. For r adiation dose reduction, the following was used: automated exposure control, adjustment of mA and/or kV according to patient size. COMPARISON: None. FINDINGS: Image quality: Excellent. CSF spaces: Basal cisterns are patent. No extra-axial fluid collections. Ventricles are normal in size and shape. Brain: No midline shift. No intracranial masses or hemorrhage. Dodge-white matter interface is norm al. Skull and face: Calvarium and visualized facial bones are intact, without suspicious lesions. Sinuses: Visualized sinuses and mastoids are clear. IMPRESSION: Unremarkable noncontrast head CT, without a cause of seizure identified. Reviewed by: Shailesh Ballard MD on 03/28/2023 2:48 PM AKGREGG Approved by: Shailesh Ballard MD on 03/28/2023 2:48 PM JAMESON Station ID: [id number]
[2023-03-28 15:52] LABS: PROLACTIN 20.16 ng/mL
[2023-03-28 15:54] LABS: MUDS CUTOFF CONCENTRATIONS CUTOFF CONC BELOW:
[2023-03-28 16:09] LABS: AMPHETAMINE SCREEN,URINE NEGATIVE (NEGATIVE); BARBITURATE SCREEN,UR NEGATIVE (NEGATIVE); BENZODIAZEPINES SCREEN, URINE POSITIVE (NEGATIVE); COCAINE SCREEN URINE NEGATIVE (NEGATIVE); METHADONE SCREEN, URINE NEGATIVE (NEGATIVE); METHAMPHETAMINES SCREEN, URINE NEGATIVE (NEGATIVE); OPIATE SCREEN, URINE NEGATIVE (NEGATIVE); OXYCODONE SCREEN, URINE NEGATIVE (NEGATIVE); PROPOXYPHENE SCREEN, URINE NEGATIVE (NEGATIVE); THC CANNABINOID SCREEN, URINE NEGATIVE (NEGATIVE); TRICYCLIC ANTIDEPRESSANT,URINE NEGATIVE (NEGATIVE)
[2023-03-28 16:11] VITALS: BP 145/73
== END 2023-03-28 16:19 | disposition home or self-care (01) ==
LOC: EDUNIT# → ED 14:50
DX: R56.9 Unspecified convulsions (principal); F17.200 Nicotine dependence, unspecified, uncomplicated
CPT/HCPCS: 36415; 80053; 80306; 80320; 84146; 85025; 93005; 99283; 99284

== ENCOUNTER 2023-06-29 22:30 | Emergency (ER) | payer OTHER ==
[2023-06-29] MEDS ORDERED: IBUPROFEN 800 MG TABLET PO STA (22:50)
[2023-06-29 23:38] LABS: B. PARAPERTUSSIS- RESP PCR PAN NOT DETECTED; B. PERTUSSIS- RESP PCR PANEL NOT DETECTED; C. PNEUMONIAE- RESP PCR PANEL NOT DETECTED; CORONAVIRUS 229E-RESP PCR NOT DETECTED; CORONAVIRUS HKU1-RESP PCR NOT DETECTED; CORONAVIRUS NL63-RESP PCR NOT DETECTED; CORONAVIRUS OC43-RESP PCR NOT DETECTED; HUMAN METAPNEUMOVIRUS NOT DETECTED; INFLUENZA A- RESP PCR PANEL NOT DETECTED; INFLUENZA B - RESP PCR PANEL NOT DETECTED; M. PNEUMONIAE- RESP PCR PANEL NOT DETECTED; PARAINFLUENZA VIRUS 1 NOT DETECTED; PARAINFLUENZA VIRUS 2 NOT DETECTED; PARAINFLUENZA VIRUS 3 NOT DETECTED; PARAINFLUENZA VIRUS 4 NOT DETECTED; RHINOVIRUS/ENTEROVIRUS NOT DETECTED; RSV- RESP PCR PANEL NOT DETECTED; SARS-CoV-2 -RESP PCR PANEL DETECTED
--- NOTE | 2023-06-29 23:44 | ED Physician Documentation ---
History of Present Illness - Stated complaint Stated Complaint: FEVER/SOA/CARDOZO/CONGESTION - Chief complaint Chief Complaint: Fever - History obtained from History obtained from: Patient - Additonal information Additional information: HPI from patient. Patient complains of 2 days of fever to a Tmax of 101.5 at home, left-sided headache. He also notes mild dyspnea, positive moist cough. He is up-to-date on immunizations. He has no past medical history, takes no prescription medications, has no medication allergies. There are no exacerbating or ameliorating factors. Denies stiff neck, denies visual changes. He contacted the after-hours medical line associated with the [facility] and was advised to come to the emergency department right away. Review of Systems Constitutional: reports: Fever, Chills, Myalgias, Sweats Throat: denies: Sore throat Cardiac: reports: Reviewed and negative Respiratory: reports: Dyspnea (mild), Cough GI: denies: Abdominal Pain Neurologic: reports: Headache PD PAST MEDICAL HISTORY - Past Medical History Past Medical History: Yes Neuro: Other Other Past Medical History: seizure - Past Surgical History Past Surgical History: Yes Ortho: Shoulder arthroplasty, Arthroscopic surgery - Present Medications Home Medications: Ambulatory Orders Medication Instructions Recorded Confirmed Albuterol Sulf [Ventolin Hfa 1 - 2 puffs INH Q4HR PRN #1 each 06/09/22 Inhaler] - Allergies Allergies/Adverse Reactions: Allergies Allergy/AdvReac Type Severity Reaction Status Date / Time No Known Drug Allergies Allergy Verified 06/29/23 22:43 - Social History Does the pt smoke?: No Smoking Status: Never smoker Does the pt drink ETOH?: Yes Does the pt have substance abuse?: No - Immunizations Immunizations are current?: Yes - POLST Patient has POLST: No PD ED PE NORMAL - Vitals Vital signs reviewed: Yes - General General: Alert and oriented X 3, No acute distress, Well developed/nourished - HEENT HEENT: Moist mucous membranes - Neck Neck: Supple, no meningeal sign - Cardiac Cardiac: RRR, No murmur - Respiratory Respiratory: No respiratory distress, Clear bilaterally Results - Vitals Vitals: Oxygen O2 Source Room air - Labs Labs: Laboratory Tests 06/29/23 22:39 Nasal Adenovirus (PCR) NOT DETECTED Nasal B. parapertussis DNA (PCR) NOT DETECTED Nasal Coronavir 229E PCR NOT DETECTED Nasal Coronavir HKU1 PCR NOT DETECTED Nasal Coronavir NL63 PCR NOT DETECTED Nasal Coronavir OC43 PCR NOT DETECTED Nasal Enterovir/Rhinovir PCR NOT DETECTED Nasal Influenza B PCR NOT DETECTED Nasal Influenza A PCR NOT DETECTED Nasal Parainfluen 1 PCR NOT DETECTED Nasal Parainfluen 2 PCR NOT DETECTED Nasal Parainfluen 3 PCR NOT DETECTED Nasal Parainfluen 4 PCR NOT DETECTED Nasal RSV (PCR) NOT DETECTED Nasal B.pertussis DNA PCR NOT DETECTED Nasal C.pneumoniae (PCR) NOT DETECTED [facility] Human Metapneumo PCR NOT DETECTED Nasal M.pneumoniae (PCR) NOT DETECTED Nasal SARS-CoV-2 (PCR) DETECTED A - Rads (name of study) chest xray Relevant Findings:: Prelim report reviewed, EMP independent interpretation of test (I reviewed this x-ray and my interpretation is: No acute abnormality including no infiltrate), See rad report PD Medical Decision Making - ED course Complexity details: reviewed results, re-evaluated patient, considered differential, d/w patient ED course: Respiratory PCR panel is positive for COVID. Chest x-ray is unremarkable specifically no evidence of infiltrate or other evidence of infectious process. Patient weighs 131 kg for a body mass index of 41.5; this puts him at greater risk for progression to severe disease, and thus he is given Paxlovid kit with instructions on use. Return precautions are discussed. Departure - Departure Disposition: 01 Home, Self Care Clinical Impression: COVID-19 Condition: Good Instructions: ED Viral Syndrome Comments: You have tested positive for COVID on the nasal swab. Take the anti-viral medication according to the instructions in the kit that has been provided to you raji (Paxlovid). Google "CDC isolation" and then click on the link to "Isolation and Precautions for People with COVID-19 - CDC". This will have useful information for you as we ll as household contacts. There is a calculator on the page that will determine when you can end isolation. Forms: PCP List, Activity restrictions Discharge Date/Time: 06/30/23 00:09
[2023-06-29] MEDS ORDERED: NIRMATRELVIR/RITONAVIR PREPACK PO STA (23:54)
[2023-06-30 00:16] VITALS: BP 127/85; O2SAT 100
--- NOTE | 2023-06-30 00:30 | XRAY Report ---
PROCEDURE: Chest 1 View X-Ray INDICATIONS: chest pain TECHNIQUE: One view of the chest was acquired. COMPARISON: CXR 06/09/2022. FINDINGS: Surgical changes and devices: None. Lungs and pleura: No pleural effusions or pneumothorax. Lungs are clear. Mediastinum: Mediastinal contours appear normal. Heart size is normal. Bones and chest wall: No suspicious bony lesions. Overlying soft tissues appear unremarkable. IMPRESSION: No acute cardiopulmonary process. Reviewed by: Lennox Breaux MD on 06/30/2023 12:28 AM PST Approved by: Lennox Breaux MD on 06/30/2023 12:28 AM PST Station ID: [id number]
== END 2023-06-30 00:09 | disposition home or self-care (01) ==
LOC: ED 22:30
DX: U07.1 COVID-19 (principal)
CPT/HCPCS: 71045; 87633; 99284; A9270; J3490

== ENCOUNTER 2024-03-10 12:51 | Outpatient (CLI) | payer OTHER ==
--- NOTE | 2024-03-10 21:15 | MRI Report ---
PROCEDURE: Lumbar Spine WO INDICATIONS: SCIATICA TECHNIQUE: Noncontrast sagittal T1 spin echo and T2 fast echo, sagittal STIR, axial T1 and T2 fast spin echo thr ough the lumbar spine. In cases with scoliosis, additional coronal T2 fast spin echo may be performe d. COMPARISON: None. FINDINGS: Image quality: Diagnostic, with note made of motion artifact. Alignment and Curvature: There is mild grade 1 anterolisthesis at L5-S1. Associated bilateral pars d efects are seen. Bone Marrow: Marrow is of normal overall signal. Scattered foci of T1-weighted hyperintensity and T2-weighted hyperintensity are seen, without increased STIR signal. These foci are attributed to judy gn vertebral body hemangiomas. No acute vertebral body compression fractures. Spinal Cord: Conus medullaris terminates at the L1 level. Visualized cord demonstrates normal signa l and size. Paraspinous Soft Tissues: No paravertebral masses. T12-L1: Normal in appearance. L1-L2: Normal in appearance. L2-L3: Normal in appearance. L3-L4: No significant abnormality is seen. L4-L5: Level within normal limits. L5-S1: The disc height is well-preserved. There is loss of disc signal seen. Mild disc bulge is se en. Mild facet hypertrophy is seen. There is moderate left-sided and moderate to severe right-sided neuroforaminal narrowing. There is a degree of compression seen upon the exiting right L5 nerve root. No central canal narrowing is seen. IMPRESSION: Focal degenerative change is seen at L5-S1, with compression upon the exiting right L5 nerve root. Bilateral L5 pars defects are seen, with grade 1 L5-S1 anterolisthesis. Reviewed by: Shailesh Ballard MD on 03/10/2024 8:13 PM JAMESON Approved by: Shailesh Ballard MD on 03/10/2024 8:13 PM JAMESON Station ID: [id number]
== END 2024-03-10 12:52 | disposition home or self-care (01) ==
LOC: DI 12:51
PROVIDERS: ATTEND Internal Medicine
DX: M47.27 Other spondylosis with radiculopathy, lumbosacral region (principal); M48.07 Spinal stenosis, lumbosacral region; M51.17 Intervertebral disc disorders with radiculopathy, lumbosacral region